=== PATIENT | female | born 1970 | race Hispanic/Latino ===

== ENCOUNTER 2022-12-19 20:24 | Emergency (ER) | payer BC, MEDICAID ==
[~2022-12-19] VITALS: Ht 152.4 cm; Wt 71.7 kg
[~2022-12-19 20:24] MED LIST: BENA10TA77 PO; INSU100V12 SQ; METF-446 PO
[2022-12-19] MEDS ORDERED: LORAZEPAM 2 MG/ML 1 ML VIAL ONE (21:58)
[2022-12-19] MEDS ORDERED: LORAZEPAM 2 MG/ML 1 ML VIAL IVP ONE (22:00)
[2022-12-19 22:01] LABS: BASOPHILS % (AUTO) 0.6 % (0.0-5.0); EOSINOPHILS % (AUTO) 1.7 % (0.0-8.0); HEMATOCRIT 39.4 % (36-48); LYMPHOCYTES % (AUTO) 28.8 % (21.0-51.0); MEAN CORPUSCULAR HEMOGLOBIN 29.2 pg (27.0-33.0); MEAN CORPUSCULAR HGB CONC 34.3 g/dL (32.0-36.0); MEAN CORPUSCULAR VOLUME 85.1 fL (79-99); MONOCYTES % (AUTO) 6.1 % (3.0-13.0); NEUTROPHILS % (AUTO) 62.6 % (40.0-77.0); PLATELET COUNT (AUTO) 251 K/uL (130-400); RED BLOOD CELL COUNT(AUTO) 4.63 MIL/uL (4.00-5.50); RED CELL DISTRIBUTION WIDTH 12.5 % (11.0-15.5); WHITE BLOOD COUNT (AUTO) 8.6 K/uL (4.8-10.8)
[2022-12-19 22:17] LABS: CREATININE 0.8 mg/dL (0.5-1.5); POTASSIUM 3.3 mmol/L (3.5-5.1)
[2022-12-19 22:22] LABS: ALBUMIN 3.9 g/dL (3.5-5.0)
[2022-12-19] MEDS ORDERED: ONDANSETRON 4MG INJ ONE (23:26)
[2022-12-19 23:45] VITALS: BP 146/88
== END 2022-12-20 00:13 | disposition home or self-care (01) ==
LOC: EDH 20:24
DX: F41.9 Anxiety disorder, unspecified (principal); E11.9 Type 2 diabetes mellitus without complications; I10 Essential (primary) hypertension; Z79.4 Long term (current) use of insulin; Z79.84 Long term (current) use of oral hypoglycemic drugs
CPT/HCPCS: 99284; 96374; 96375; 80053; 85025; 85378; 36415; J2405; J2060

== ENCOUNTER → 2023-04-22 | Emergency (ER) | payer BC ==
[~2023-04-22] VITALS: Ht 152.4 cm; Wt 72.6 kg
[2023-04-22 10:23] VITALS: BP 139/85
== END ==
LOC: EDH 10:22
DX: R68.89 Other general symptoms and signs (principal); Z53.21 Procedure and treatment not carried out due to patient leaving prior to being seen by health care provider

== ENCOUNTER 2023-07-29 14:06 | Emergency (ER) | payer BC ==
[~2023-07-29] VITALS: Ht 152.4 cm; Wt 68.0 kg
[~2023-07-29 14:06] MED LIST changes: -BENA10TA77 PO; +CEFD300C3 PO; +CLON0.1T PO; +EMPA25TA PO; +GABA-529 PO; -METF-446 PO; +METO-408 PO; +QUET100T34 PO; +SITA1TBM4 PO; +TELM80TA10 PO
[2023-07-29] MEDS ORDERED: DiphenhydrAMINE HCL 25 MG/10 ML ELIXIR UDCUP PO ONE (15:00)
[2023-07-29] MEDS ORDERED: FAMOTIDINE 20MG TAB PO ONE (15:00)
[2023-07-29] MEDS ORDERED: PREDNISONE 20 MG TABLET PO ONE (15:00)
[2023-07-29] MEDS ORDERED: AMLODIPINE 5 MG TAB PO ONE (16:00)
[2023-07-29] MEDS ORDERED: HYD25 PO (17:00)
[2023-07-29] MEDS ORDERED: CLOT15CR5 TP (17:00)
[2023-07-29] MEDS ORDERED: PRED20TA3 PO (17:00)
[2023-07-29 17:04] VITALS: BP 146/81; PULSE 72; RESP 18; O2SAT 100
== END 2023-07-29 17:06 | disposition home or self-care (01) ==
LOC: EDH 14:06
DX: L20.9 Atopic dermatitis, unspecified (principal); F41.9 Anxiety disorder, unspecified; I10 Essential (primary) hypertension; E11.9 Type 2 diabetes mellitus without complications; Z79.899 Other long term (current) drug therapy; Z98.890 Other specified postprocedural states
CPT/HCPCS: 87880

== ENCOUNTER 2024-08-31 03:41 | Emergency (ER) | payer BC ==
[~2024-08-31] VITALS: Ht 152.4 cm; Wt 63.5 kg
[~2024-08-31 03:41] MED LIST changes: +CLOT15CR5 TP; +HYD25 PO; +PRED20TA3 PO
[2024-08-31 04:18] LABS: APPEARANCE,URINE CLEAR (CLEAR); BILIRUBIN,URINE NEGATIVE (NEGATIVE); COLOR,URINE COLORLESS (YELLOW); GLUCOSE, URINE (UA) NEGATIVE (NEGATIVE); KETONES,URINE NEGATIVE (NEGATIVE); LEUKOCYTE ESTERASE ,URINE NEGATIVE Leu/uL (NEGATIVE); NITRATE,URINE NEGATIVE (NEGATIVE); OCCULT BLOOD,URINE NEGATIVE (NEGATIVE); PH,URINE 6.5 (5.0-8.0); PROTEIN,URINE NEGATIVE (NEGATIVE); UROBILINOGEN,URINE 0.2 mg/dL (0.2-1.0)
[2024-08-31 04:20] LABS: ADD UA MICROSCOPIC NO
[2024-08-31] MEDS: hydrALAZine 20MG/ML VIAL IV ONE (04:34)
[2024-08-31] MEDS: NITROGLYCERIN 1GM OINT 1 INCH/1GM TD ONE (04:35)
[2024-08-31 04:36] LABS: BASOPHILS # (AUTO) 0.05 K/uL (0.00-0.20); BASOPHILS % (AUTO) 0.9 % (0.0-5.0); EOSINOPHILS # (AUTO) 0.27 K/uL (0.00-0.70); EOSINOPHILS % (AUTO) 4.8 % (0.0-8.0); HEMATOCRIT 38.2 % (36-48); IMMATURE GRANULOCYTE ABSOLUTE 0.01 K/uL (0-1); LYMPHOCYTES # (AUTO) 1.9 K/uL (1.0-4.8); LYMPHOCYTES % (AUTO) 33.7 % (21.0-51.0); MEAN CORPUSCULAR VOLUME 85.1 fL (79-99); MONOCYTES # (AUTO) 0.3 K/uL (0.1-1.0); MONOCYTES % (AUTO) 5.9 % (3.0-13.0); NEUTROPHILS # (AUTO) 3.1 K/uL (1.8-7.7); NEUTROPHILS % (AUTO) 54.5 % (40.0-77.0); PLATELET COUNT (AUTO) 283 K/uL (130-400); RED BLOOD CELL COUNT(AUTO) 4.49 MIL/uL (4.00-5.50); RED CELL DISTRIBUTION WIDTH 12.3 % (11.0-15.5); WHITE BLOOD COUNT (AUTO) 5.6 K/uL (4.8-10.8)
[2024-08-31 04:44] LABS: CREATININE 0.7 mg/dL (0.5-1.0)
[2024-08-31 05:02] LABS: B-TYPE NATRIURETIC PEPTIDE 39 pg/mL (0-100)
--- NOTE | 2024-08-31 06:17 | ERN ---
General Chief Complaint: Dizzy/Light Headed Stated Complaint: DIZZINESS Time Seen by MD: 03:59 History of Present Illness Initial Comments Mrs Baldwin is a 54 year old female with a history of type 2 diabetes, essential hypertension, depression, neuropathic pain who presents today with a chief complaint of dizziness. Patient reports that she has been having increased blood pressure and dizziness. Patient reports that her blood pressure has been uncontrolled and says he come in for further evaluation and care Allergies: Coded Allergies: No Known Drug Allergies (Unverified Allergy, Unknown, 01/27/17) Home Meds Active Scripts Hydroxyzine HCl (Atarax) 25 Mg Tab, 25 MG PO TIDMEALS PRN for ITCHING, #30 TAB Prov:TYLOR VELAZCO [employer] 07/29/23 Prednisone (Prednisone) 20 Mg Tablet, 2 TAB PO DAILY for 5 Days, #10 TAB 0 Refills Prov:TYLOR VELAZCO [employer] 07/29/23 Clotrimazole/Betamethasone Dip (Clotrimazole-Betamethasone Crm) 1 %-0.05 % Cream ..g., 0.5 GM TP BID, #15 GM Apply to the affected area of the skin twice a day x7 days. Prov:TYLOR VELAZCO [employer] 07/29/23 Cefdinir (Cefdinir) 300 Mg Capsule, 300 MG PO BID, #14 CAP 0 Refills Prov:JOCE [facility]QVI [facility] [place] 05/02/23 Reported Medications Insulin Detemir (Levemir) 100 Unit/1 Ml Vial, 22 UNIT SQ AD, VIAL 04/29/23 Sitagliptin Phos/Metformin HCl (Janumet Xr 50-1,000 mg Tablet) 1 Each Tbmp.24hr, 1 EACH PO BID, TAB.SR 04/29/23 Telmisartan (Telmisartan) 80 Mg Tablet, 80 MG PO DAILY, TAB 04/29/23 Gabapentin (Gabapentin) 100 Mg Capsule, 100 MG PO DAILY, CAP 04/29/23 Quetiapine Fumarate (Quetiapine Fumarate) 100 Mg Tablet, 100 MG PO HS, TAB 04/29/23 Clonidine HCl (Clonidine HCl) 0.1 Mg Tablet, 0.1 MG PO AD, TAB 04/29/23 Empagliflozin (Jardiance) 25 Mg Tablet, 25 MG PO DAILY, TAB 04/29/23 Gabapentin (Gabapentin) 100 Mg Capsule, 100 MG PO HS, CAP 04/29/23 Metoprolol Succinate (Metoprolol Succinate) 25 Mg Tab.er.24h, 25 MG PO DAILY, TAB 04/29/23 Past Medical History Past Medical History: Diabetes-Type II, Hypertension Past Surgical History: Family History Family History: Negative Social History Social History: Negative Female( History) History: Not Applicable ROS Dictation Constitutional: Negative for fever,chills, and weight loss Eyes: Negative for injury, pain,redness, and discharge ENT: Negative for injury,pain or swelling Cardiovascular: Negative for chest pain, palpitations, and edema Respiratory: Negative for shortness of breath, cough, and wheezing, Abdomen/GI: Negative for abdominal pain, nausea, vomiting, diarrhea, and constipation Back: Negative for injury and pain : Negative for injury, bleeding and discharge MS/Extremity: Negative for injury Skin: Negative for rash, and discoloration Neuro: Positive for dizziness Psych: Negative for suicide ideation, homicidal ideation, and hallucinations Physical Exam Physical Exam Dictation General: awake, alert, NAD Head/Face: Normocephalic, atraumatic Eyes: PERRL, EOMI, ENT: oral cavity clear, nasal turbinate swelling bilateral, tympanic membrane congestion Neck: Trachea midline, supple, Cardiovascular: RRR, normal S1/S2, No MRGs, no JVD Respiratory: CTAB, no respiratory distress Abdomen: Soft, non-tender, non-distended, normal bowel sounds, no guarding or rebound. Skin: Warm, dry, normal turgor, no rash MS/Extremity: Pulses equal, no cyanosis, neurovascular intact, FROM Neuro: COAx4, GCS 15, strength 5/5, CN 2-12 intact, Results Laboratory and Microbiology Lab and Micro Result Laboratory Tests Test 08/31/24 04:08 08/31/24 04:28 08/31/24 04:53 Urine Color COLORLESS (YELLOW) Urine Appearance CLEAR (CLEAR) Urine pH 6.5 (5.0-8.0) Urine Specific [place] 1.004 (1.001-1.031) Urine Protein NEGATIVE mg/dL (NEGATIVE) Urine Glucose (UA) NEGATIVE mg/dL (NEGATIVE) Urine Ketones NEGATIVE mg/dL (NEGATIVE) Urine Occult Blood NEGATIVE (NEGATIVE) Urine Nitrate NEGATIVE (NEGATIVE) Urine Bilirubin NEGATIVE mg/dL (NEGATIVE) Urine Urobilinogen 0.2 mg/dL (0.2-1.0) Urine Leukocyte Esterase NEGATIVE Fredy/uL White Blood Count 5.6 K/uL (4.8-10.8) Red Blood Count 4.49 MIL/uL (4.00-5.50) Hemoglobin 13.0 g/dL (12.0-16.0) Hematocrit 38.2 % (36-48) Mean Corpuscular Volume 85.1 fL (79-99) Mean Corpuscular Hemoglobin 29.0 pg (27.0-33.0) Mean Corpuscular Hemoglobin Concent 34.0 g/dL (32.0-36.0) Red Cell Distribution Width 12.3 % (11.0-15.5) Platelet Count 283 K/uL (130-400) Mean Platelet Volume 10.8 fL (7.5-10.5) H Immature Granulocyte % (Auto) 0.2 % (0-1) Neutrophils (%) (Auto) 54.5 % (40.0-77.0) Lymphocytes (%) (Auto) 33.7 % (21.0-51.0) Monocytes (%) (Auto) 5.9 % (3.0-13.0) Eosinophils (%) (Auto) 4.8 % (0.0-8.0) Basophils (%) (Auto) 0.9 % (0.0-5.0) Neutrophils # (Auto) 3.1 K/uL (1.8-7.7) Lymphocytes # (Auto) 1.9 K/uL (1.0-4.8) Monocytes # (Auto) 0.3 K/uL (0.1-1.0) Eosinophils # (Auto) 0.27 K/uL (0.00-0.70) Basophils # (Auto) 0.05 K/uL (0.00-0.20) Absolute Immature Granulocyte (auto 0.01 K/uL (0-1) Nucleated Red Blood Cells 0.0 % (0.0-0.19) Sodium Level 137 mmol/L (136-145) Potassium Level 4.0 mmol/L (3.5-5.1) Chloride Level 100 mmol/L (101-111) L Carbon Dioxide Level 28 mmol/L (21-32) Blood Urea Nitrogen 17 mg/dL (7-18) Creatinine 0.7 mg/dL (0.5-1.0) Glomerular Filtration Rate Calc 103 mL/min (>90) Random Glucose 173 mg/dL (70-105) H Total Calcium 9.1 mg/dL (8.5-10.1) B-Type Natriuretic Peptide 39 pg/mL (0-100) Troponin I < 0.05 ng/mL (0.00-0.05) Labs Reviewed?: Yes EKG/XRAY/US/CT/MRI CT Scan Comment [facility] [address] [place] [address] IMAGING REPORT Signed PATIENT: KENTRELL BALDWIN MR#: [id number] : 1970 SEX: F AGE: 54 LOCATION: [facility] ORDER 9 STATUS: REG REPORT#: [id number] SERVICE 7 REASON: DIZZINESS ORDERING PHYSICIAN: ZACH SANCHES MD PROCEDURE: HEAD WO - CT HEAD/BRAIN W/O CONTRAST CT HEAD/BRAIN W/O CONTRAST HISTORY: Dizziness COMPARISON: None TECHNIQUE: Multiple sequential axial images of the head were obtained from the base of the skull through vertex. Patient was not given contrast through intravenous route. FINDINGS: The ventricles and extraventricular CSF spaces are nondilated for patient's age. There is no midline shift, mass effect or herniation. No acute intracranial bleed is seen. Visualized portion of the paranasal sinuses are grossly within normal limits. IMPRESSION: 1. No acute intracranial bleed is seen. CT was performed with one or more following dose reduction techniques: automated exposure control, adjustment of the mA and kv according to patient's size, or use of a iterative reconstruction technique. DICTATED BY: SHARON ZABALA MD DATE: 08/31/24817 ELECTRONICALLY SIGNED BY: SHARON ZABALA MD DATE: 08/31/24820 [facility] MDM: Differential diagnosis: Vertigo, dizziness, sinusitis, 54-year-old female coming in to be evaluated for dizziness. Laboratory workup negative for acute findings. CT of the head negative for acute findings. Patient will be discharged with a diagnosis of sinusitis symptom physical exam bilateral tympanic membrane congestion as well as nasal turbinate swelling. ED Course Orders Procedure Category Date Status Time Urinalysis Profile LAB 08/31/24 Complete 04:12 Cbc With Differential LAB 08/31/24 Complete 04:17 B-Type Natriuretic LAB 08/31/24 Complete Peptide 04:17 Chest 1vw RAD 08/31/24 Resulted 04:17 Nitroglycerin 1gm PHA 08/31/24 Complete Oint (Nitroglycerin 1g 04:30 Troponin Poc Order LAB 08/31/24 Complete Only 04:17 Basic Metabolic Panel LAB 08/31/24 Complete 04:17 Hydralazine 20mg Inj PHA 08/31/24 Complete (Apresoline 20mg In 04:30 Ct Head/Brain W/O CT 08/31/24 Resulted Contrast 05:58 Ondansetron 4mg Inj PHA 08/31/24 Complete (Zofran 4mg Inj) 06:30 Meclizine Hcl 25 Mg PHA 08/31/24 Complete (Antivert 25 Mg) 08:00 Dexamethasone 4mg/Ml PHA 08/31/24 Complete 1ml Vial (Dexametha 08:00 0.9%Nacl 1000ml (Ns PHA 08/31/24 Complete 1000ml) 08:00 Current Medications Medications (Trade) Dose Ordered Sig/Carlota Route PRN Reason Start Time Stop Time Status Last Admin Dose Admin Dexamethasone Sodium Phosphate (dexaMETHasone 4MG/ML 1ML VIAL) 4 mg ONCE ONCE IV 08/31/24 08:00 08/31/24 08:01 DC 08/31/24 08:12 Hydralazine HCl (APRESOLine 20MG INJ) 20 mg ONCE ONCE IV 08/31/24 04:30 08/31/24 04:31 DC 08/31/24 04:34 Meclizine HCl (ANTIvert 25 mg) 25 mg ONCE ONCE PO 08/31/24 08:00 08/31/24 08:01 DC 08/31/24 08:13 Nitroglycerin (Nitroglycerin 1gm Oint) 1 inch ONCE ONCE TD 08/31/24 04:30 08/31/24 04:31 DC 08/31/24 04:35 Ondansetron HCl (zoFRAN 4MG INJ) 4 mg ONCE ONCE IVP 08/31/24 06:30 08/31/24 06:31 DC 08/31/24 06:18 Sodium Chloride 1,000 ml @ 0 mls/hr ONCE ONCE IV 08/31/24 08:00 08/31/24 08:01 DC 08/31/24 08:12 Vital Signs Date Time Temp Pulse Resp B/P (MAP) Pulse Ox O2 Delivery O2 Flow Rate FiO2 08/31/24 07:42 98.1 87 16 139/72 95 Room Air* 0 08/31/24 05:38 87 16 156/82 97 Room Air* 0 08/31/24 04:16 98.1 79 16 175/109 99 Room Air* 0 08/31/24 03:45 98.1 80 16 178/97 99 Room Air 0 DX & DISP Disposition: Discharge Departure Impression: Primary Impression: Acute frontal sinusitis Condition: Stable Scripts Fluticasone Propionate (Flonase Nasal [place]) 50 Mcg/Actuation [place] 2 SPRAY NS DAILY, #16 GM 0 Refills Prov: CARLOZ ENCISO MD 08/31/24 Amoxicillin/Potassium Clav (Amox Tr-K Clv 875-125 mg Tab) 875 Mg-125 Mg Tablet 1 TAB PO BID for 10 Days, #20 TAB 0 Refills Prov: CARLOZ ENCISO MD 08/31/24 Additional Instructions: FOLLOW-UP WITH PRIMARY CARE PROVIDER IN 1 TO 2 DAYS. TAKE MEDICATIONS DIRECTED HERE IN THE EMERGENCY ROOM. OKAY TO CONTINUE HOME MEDICATIONS UNLESS OTHERWISE DISCUSSED DURING YOUR VISIT IN THE EMERGENCY ROOM TODAY. RETURN TO YOUR NEAREST EMERGENCY ROOM IF SYMPTOMS WORSEN OR IF THERE IS NO IMPROVEMENT. CALL 911 IF YOU NEED IMMEDIATE ASSISTANCE. TAKE TYLENOL [id number] NEEDED AND IF NO CONTRAINDICATIONS ARE PRESENT. INCREASE ORAL HYDRATION. A WOUND CULTURE OR URINE CULTURE WAS ORDERED HERE IN THE EMERGENCY ROOM DEPARTMENT PLEASE FOLLOW-UP WITH PRIMARY CARE PROVIDER AND ADVISE THEM TO GET REPEAT PORTS FROM OUR FACILITY. IF YOU HAD ANY RICKY WRAP/SPLINTS THAT WERE APPLIED HERE, PLEASE DO NOT REMOVE THEM UNTIL YOU SEE YOUR PRIMARY CARE OR SPECIALTY. Referrals: Referrals: SELF,REFERRAL (PCP) RHINA METCALF III, MD, LUIS A MD Time of Disposition: 08:38 ZACH SANCHES MD Aug 31, 2024 06:17 CARLOZ ENCISO MD Aug 31, 2024 08:34
[2024-08-31] MEDS: ondanSETRON 4MG INJ IVP ONE (06:18)
[2024-08-31] MEDS: dexaMETHasone SOD PHOSPHATE 4 MG/ML 1ML VIAL IV ONE (08:12)
[2024-08-31] MEDS: 0.9%NACL 1000ML 1,000 ML IV ONE (08:12)
[2024-08-31] MEDS: mecliZINE HCL 25 MG TABLET PO ONE (08:13)
--- NOTE | 2024-08-31 08:21 | HMCIMG ---
CT HEAD/BRAIN W/O CONTRAST HISTORY: Dizziness COMPARISON: None TECHNIQUE: Multiple sequential axial images of the head were obtained from the base of the skull through vertex. Patient was not given contrast through intravenous route. FINDINGS: The ventricles and extraventricular CSF spaces are nondilated for patient's age. There is no midline shift, mass effect or herniation. No acute intracranial bleed is seen. Visualized portion of the paranasal sinuses are grossly within normal limits. IMPRESSION: 1. No acute intracranial bleed is seen. CT was performed with one or more following dose reduction techniques: automated exposure control, adjustment of the mA and kv according to patient's size, or use of a iterative reconstruction technique.
--- NOTE | 2024-08-31 08:31 | HMCIMG ---
CHEST 1VW HISTORY: Shortness of breath COMPARISON: None FINDINGS: A frontal projection of the chest was obtained. No acute pulmonary infiltrates is seen. The heart is normal in size. Prominent interstitial markings are seen. Degenerative changes are seen. No evidence of aortic calcification is seen. IMPRESSION: 1. No acute pulmonary infiltrate is seen.
[2024-08-31] MEDS ORDERED: AMOX1TAB16 PO (08:39)
[2024-08-31] MEDS ORDERED: FLUT16H NS (08:39)
[2024-08-31] MEDS: ketOROlac 15MG/ML VIAL (15MG/ML) IM ONE (09:09)
--- NOTE | 2024-08-31 09:09 | NUR ---
FLUIDS NOT COMPLETED
[2024-08-31 09:50] VITALS: BP 146/80; PULSE 98; RESP 16; TEMP 98.1; O2SAT 99
== END 2024-08-31 10:20 | disposition home or self-care (01) ==
LOC: EDH 03:41
DX: J01.10 Acute frontal sinusitis, unspecified (principal); I10 Essential (primary) hypertension; E11.9 Type 2 diabetes mellitus without complications; F32.A Depression, unspecified; Z79.52 Long term (current) use of systemic steroids; Z79.84 Long term (current) use of oral hypoglycemic drugs; Z79.899 Other long term (current) drug therapy; Z98.890 Other specified postprocedural states
CPT/HCPCS: 99284; 96374; 70450; 96375; 71045; 96361; 84484; 80048; 83880; 85025; 81003; 36415; 96372; J1100; J7030; J0360; J2405; J1885

== ENCOUNTER 2025-02-13 00:53 | Emergency (ER) | payer BC ==
[~2025-02-13] VITALS: Ht 152.4 cm; Wt 64.4 kg
[~2025-02-13 00:53] MED LIST changes: +AMOX1TAB16 PO; +FLUT16H NS
--- NOTE | 2025-02-13 01:19 | ERN ---
General Chief Complaint: Hypertension Stated Complaint: C/O HIGH B/P WITH DIZZINESS Time Seen by MD: 00:56 Time Seen by Midlevel: 00:56 Source: patient History of Present Illness Initial Comments The patient is a 55-year-old female with a past medical history of type 2 diabetes, hypertension, insomnia, and anxiety presenting to the emergency department for evaluation of an elevated blood pressure reading at home. Patient states that at approximately 10:00 p.m. today she did not feel that so she decided to check her blood pressure and it was 190 systolic. She proceeded to take her telmisartan 40 mg however 1 hour later she developed a headache, chest pressure, and palpitations. Her blood pressure at that time was 2:20 a.m. systolic so she decided to report to the ER for further evaluation. At this time she had already taken 40 mg of telmisartan. On arrival she does report some mild chest pressure with palpitations but does report feeling better than when she was at home. Allergies: Coded Allergies: No Known Drug Allergies (Unverified Allergy, Unknown, 01/27/17) Home Meds Active Scripts Fluticasone Propionate (Flonase Nasal [place]) 50 Mcg/Actuation [place], 2 SPRAY NS DAILY, #16 GM 0 Refills Prov:CARLOZ ENCISO MD 08/31/24 Amoxicillin/Potassium Clav (Amox Tr-K Clv 875-125 mg Tab) 875 Mg-125 Mg Tablet, 1 TAB PO BID for 10 Days, #20 TAB 0 Refills Prov:CARLOZ ENCISO MD 08/31/24 Hydroxyzine HCl (Atarax) 25 Mg Tab, 25 MG PO TIDMEALS PRN for ITCHING, #30 TAB Prov:TYLOR VELAZCO [employer] 07/29/23 Prednisone (Prednisone) 20 Mg Tablet, 2 TAB PO DAILY for 5 Days, #10 TAB 0 Refills Prov:TYLOR VELAZCOP 07/29/23 Clotrimazole/Betamethasone Dip (Clotrimazole-Betamethasone Crm) 1 %-0.05 % Cream..g., 0.5 GM TP BID, #15 GM Apply to the affected area of the skin twice a day x7 days. Prov:TYLOR VELAZCO [employer] 10/20/23 Cefdinir (Cefdinir) 300 Mg Capsule, 300 MG PO BID, #14 CAP 0 Refills Prov:JOCE NAQVI [facility] 05/02/23 Reported Medications Insulin Detemir (Levemir) 100 Unit/1 Ml Vial, 22 UNIT SQ AD, VIAL 04/29/23 Sitagliptin Phos/Metformin HCl (Janumet Xr 50-1,000 mg Tablet) 1 Each Tbmp.24hr, 1 EACH PO BID, TAB.SR 04/29/23 Telmisartan (Telmisartan) 80 Mg Tablet, 80 MG PO DAILY, TAB 04/29/23 Gabapentin (Gabapentin) 100 Mg Capsule, 100 MG PO DAILY, CAP 04/29/23 Quetiapine Fumarate (Quetiapine Fumarate) 100 Mg Tablet, 100 MG PO HS, TAB 04/29/23 Clonidine HCl (Clonidine HCl) 0.1 Mg Tablet, 0.1 MG PO AD, TAB 04/29/23 Empagliflozin (Jardiance) 25 Mg Tablet, 25 MG PO DAILY, TAB 04/29/23 Gabapentin (Gabapentin) 100 Mg Capsule, 100 MG PO HS, CAP 04/29/23 Metoprolol Succinate (Metoprolol Succinate) 25 Mg Tab.er.24h, 25 MG PO DAILY, TAB 04/29/23 Past Medical History Past Medical History: Anxiety, Diabetes-Type II, Hypertension, Other Medical History Other: INSOMNIA Past Surgical History: Family History Family History: Negative Social History Social History: Negative Female( History) History: Not Applicable ROS Dictation CONSTITUTIONAL: Negative except for HPI HEAD/FACE: Negative except for HPI EENT: Negative except for HPI RESPIRATORY: Negative except for HPI GASTROINTESTINAL/ABDOMINAL: Negative except for HPI GENITOURINARY: Negative except for HPI MUSCULOSKELETAL: Negative except for HPI INTEGUMENTARY: Negative except for HPI NEUROLOGICAL/PSYCH: Negative except for HPI HEMATOLOGIC/LYMPHATIC: Negative except for HPI All Systems Negative, Except as noted above. 13 point review of systems assessed and all negative except for above. Physical Exam Physical Exam Dictation Vital Signs reviewed General Appearance: Alert, oriented x 3, no acute distress, well developed, nourished. Head and Face: non-traumatic. Eyes: PERRL, pink conjunctivas, eyelid no trauma, anterior chamber with arcus senilis. Ears: Pinnas intact and no signs of trauma or erythema ear canals clear and no discharge TM no erythema Nose: No discharge, no bleeding. Oropharynx: Mouth normal, tongue pink, pharynx clear,no erythema, tonsils no exudates, no abscesses noted, mucous membrane moist Neck: Supple, non-tender, no thyromegaly, no masses, no JVD, no bruits Breast:Deferred Chest:No tenderness, no crepitus, no paradoxical movement, no retractions Lungs:Clear, well-ventilated, symmetric, no rales, no wheezing, no rhonchi, no stridor, good breath sounds bilaterally Heart: Regular rate, regular rhythm, no murmur, no gallops Vascular: no peripheral edema, Abdomen: Soft, positive bowel sounds, nondistended, no guarding, nontender, no rebound, no masses no hepatomegaly, no splenomegaly, no Tellez's sign, no hernias. Rectal: Deferred Genital: Deferred Neurological: Normal speech, motor function intact, sensory function intact Musculoskeletal: Neck nontender, full range of motion, back nontender, full range of motion, Extremities: nontender, full range of motion Skin: Color pink, dry, no turgor, no rash, no lacerations, no abrasions, no contusions. Lymphatic: Deferred Results Laboratory and Microbiology Lab and Micro Result Laboratory Tests Test 02/13/25 01:01 02/13/25 01:33 02/13/25 03:07 Urine Color COLORLESS (YELLOW) Urine Appearance CLEAR (CLEAR) Urine pH 7.0 (5.0-8.0) Urine Specific [place] 1.007 (1.001-1.031) Urine Protein NEGATIVE mg/dL (NEGATIVE) Urine Glucose (UA) >=1000 mg/dL (NEGATIVE) H Urine Ketones NEGATIVE mg/dL (NEGATIVE) Urine Occult Blood NEGATIVE (NEGATIVE) Urine Nitrate NEGATIVE (NEGATIVE) Urine Bilirubin NEGATIVE mg/dL (NEGATIVE) Urine Urobilinogen 0.2 mg/dL (0.2-1.0) Urine Leukocyte Esterase 25 Fredy/uL (NEGATIVE) H Urine RBC 0-1 /HPF (0-1) Urine WBC 2-5 /HPF (0-1) H Urine Squamous Epithelial Cells FEW /HPF (0-2) Urine Bacteria None /HPF (None Seen) Urine Opiates Screen NEGATIVE (NEGATIVE) Urine Barbiturates Screen NEGATIVE (NEGATIVE) Urine Phencyclidine Screen NEGATIVE (NEGATIVE) Urine Amphetamines Screen NEGATIVE (NEGATIVE) Urine Benzodiazepines Screen NEGATIVE (NEGATIVE) Urine Cocaine Screen NEGATIVE (NEGATIVE) Urine Marijuana (THC) Screen NEGATIVE (NEGATIVE) White Blood Count 6.5 K/uL (4.8-10.8) Red Blood Count 4.42 MIL/uL (4.00-5.50) Hemoglobin 12.9 g/dL (12.0-16.0) Hematocrit 37.6 % (36-48) Mean Corpuscular Volume 85.1 fL (79-99) Mean Corpuscular Hemoglobin 29.2 pg (27.0-33.0) Mean Corpuscular Hemoglobin Concent 34.3 g/dL (32.0-36.0) Red Cell Distribution Width 12.6 % (11.0-15.5) Platelet Count 285 K/uL (130-400) Mean Platelet Volume 11.2 fL (7.5-10.5) H Immature Granulocyte % (Auto) 0.3 % (0-1) Neutrophils (%) (Auto) 58.5 % (40.0-77.0) Lymphocytes (%) (Auto) 31.2 % (21.0-51.0) Monocytes (%) (Auto) 6.6 % (3.0-13.0) Eosinophils (%) (Auto) 2.9 % (0.0-8.0) Basophils (%) (Auto) 0.5 % (0.0-5.0) Neutrophils # (Auto) 3.8 K/uL (1.8-7.7) Lymphocytes # (Auto) 2.0 K/uL (1.0-4.8) Monocytes # (Auto) 0.4 K/uL (0.1-1.0) Eosinophils # (Auto) 0.19 K/uL (0.00-0.70) Basophils # (Auto) 0.03 K/uL (0.00-0.20) Absolute Immature Granulocyte (auto 0.02 K/uL (0-1) Nucleated Red Blood Cells 0.0 % (0.0-0.19) Sodium Level 136 mmol/L (136-145) Potassium Level 3.8 mmol/L (3.5-5.1) Chloride Level 100 mmol/L (101-111) L Carbon Dioxide Level 30 mmol/L (21-32) Blood Urea Nitrogen 16 mg/dL (7-18) Creatinine 0.8 mg/dL (0.5-1.0) Glomerular Filtration Rate Calc 87 mL/min (>90) Random Glucose 380 mg/dL (70-105) H Total Calcium 9.2 mg/dL (8.5-10.1) Magnesium Level 1.60 mg/dL (1.80-2.40) L Total Creatine Kinase 50 U/L (21-232) Troponin I High Sensitivity 5 ng/L (4-50) B-Type Natriuretic Peptide 18 pg/mL (0-100) Whole Blood Glucose 347 MG/DL (70-110) H MDM MDM: 55-year-old female with a past medical history of type 2 diabetes, hypertension, anxiety, and insomnia presenting to ER for an elevated blood pressure reading. On arrival her blood pressure is 180 systolic however when she was placed in room 16 her blood pressure had already improved to 170 systolic. She did report some chest pressure so I went ahead and ordered cardiac enzymes along with a CT scan of the head because she reported a persistent headache. Differential diagnosis: There are no social concerns with this patient. Prescription drug management Prescriptions will include: Medical management and examination interpretation discussions were had by me with other qualified healthcare professionals as indicated for the patient's care. Patient's CT head is negative. Patient's cardiac enzymes are negative. Patient's CBC is negative. Patient's BNP is negative. Patient's blood pressure was finally brought under control with hydralazine and her sugars were treated with regular insulin. Patient is stable for discharge ED Course Orders Procedure Category Date Status Time 12 Lead Ekg Tracing- EKG 02/13/25 Logged Technical 00:59 Cbc With Differential LAB 02/13/25 Complete 00:59 B-Type Natriuretic LAB 02/13/25 Complete Peptide 00:59 Basic Metabolic Panel LAB 02/13/25 Complete 00:59 Creatine Kinase, Total LAB 02/13/25 Complete 00:59 Drug Screen Urine LAB 02/13/25 Complete 00:59 Urinalysis Profile LAB 02/13/25 Complete 00:59 Troponin I High LAB 02/13/25 Complete Sensitivity 00:59 Magnesium LAB 02/13/25 Complete 00:59 Chest 1vw RAD 02/13/25 Taken 00:59 Ct Head/Brain W/O CT 02/13/25 Taken Contrast 01:18 Acetaminophen 500mg PHA 02/13/25 Complete Tab (Tylenol 500mg T 02:30 Hydralazine 20mg Inj PHA 02/13/25 Complete (Apresoline 20mg In 02:30 Bedside Glucose CPOE 02/13/25 Transmitted Fingerstick 02:57 Insulin Regular, PHA 02/13/25 Complete Human 3ml (Humulin R 03:30 Current Medications Medications (Trade) Dose Ordered Sig/Carlota Route PRN Reason Start Time Stop Time Status Last Admin Dose Admin Acetaminophen (TYLenol 500MG TAB) 1,000 mg ONCE ONCE PO 02/13/25 02:30 02/13/25 02:31 DC 02/13/25 02:21 Hydralazine HCl (APRESOLine 20MG INJ) 20 mg ONCE ONCE IV 02/13/25 02:30 02/13/25 02:47 DC Insulin Human Regular (humuLIN R 100 UNIT/ML 3ML) 20 unit ONCE ONCE SQ 02/13/25 03:30 02/13/25 03:31 DC Vital Signs Date Time Temp Pulse Resp B/P (MAP) Pulse Ox O2 Delivery O2 Flow Rate FiO2 02/13/25 02:37 72 20 170/91 98 Room Air* 0 21 02/13/25 01:30 98.8 76 20 177/100 97 Room Air* 0 21 02/13/25 00:55 98.8 85 20 188/113 99 Room Air DX & DISP Disposition: Discharge Departure Impression: Primary Impression: Hypertension Condition: Stable Referrals: SELF,REFERRAL (PCP) DUKE ARORA February 13, 2025 01:19 ANA GOFF MD February 13, 2025 03:34
[2025-02-13 01:21] LABS: AMPHET/METH SCREEN,URINE NEGATIVE (NEGATIVE); BARBITURATE SCREEN, URINE NEGATIVE (NEGATIVE); BENZODIAZEPINES SCREEN,URINE NEGATIVE (NEGATIVE); CANNABINOID SCREEN,URINE NEGATIVE (NEGATIVE); COCAINE SCREEN,URINE NEGATIVE (NEGATIVE); OPIATE SCREEN,URINE NEGATIVE (NEGATIVE); PHENCYCLIDINE SCREEN,URINE NEGATIVE (NEGATIVE)
[2025-02-13 01:22] LABS: ADD UA MICROSCOPIC YES; APPEARANCE,URINE CLEAR (CLEAR); BILIRUBIN,URINE NEGATIVE (NEGATIVE); COLOR,URINE COLORLESS (YELLOW); GLUCOSE, URINE (UA) >=1000 mg/dL (NEGATIVE); KETONES,URINE NEGATIVE (NEGATIVE); LEUKOCYTE ESTERASE ,URINE 25 Leu/uL (NEGATIVE); NITRATE,URINE NEGATIVE (NEGATIVE); OCCULT BLOOD,URINE NEGATIVE (NEGATIVE); PROTEIN,URINE NEGATIVE (NEGATIVE); UROBILINOGEN,URINE 0.2 mg/dL (0.2-1.0)
[2025-02-13 01:23] LABS: MUCUS,URINE RARE LPF (None Seen); RBC,URINE 0-1 /HPF (0-1); SQUAMOUS EPITHELIAL CELL,UR FEW /HPF (0-2)
[2025-02-13 02:06] LABS: BASOPHILS # (AUTO) 0.03 K/uL (0.00-0.20); BASOPHILS % (AUTO) 0.5 % (0.0-5.0); EOSINOPHILS # (AUTO) 0.19 K/uL (0.00-0.70); EOSINOPHILS % (AUTO) 2.9 % (0.0-8.0); HEMATOCRIT 37.6 % (36-48); IMMATURE GRANULOCYTE ABSOLUTE 0.02 K/uL (0-1); LYMPHOCYTES % (AUTO) 31.2 % (21.0-51.0); MEAN CORPUSCULAR HEMOGLOBIN 29.2 pg (27.0-33.0); MEAN CORPUSCULAR HGB CONC 34.3 g/dL (32.0-36.0); MEAN CORPUSCULAR VOLUME 85.1 fL (79-99); MONOCYTES # (AUTO) 0.4 K/uL (0.1-1.0); MONOCYTES % (AUTO) 6.6 % (3.0-13.0); NEUTROPHILS # (AUTO) 3.8 K/uL (1.8-7.7); NEUTROPHILS % (AUTO) 58.5 % (40.0-77.0); PLATELET COUNT (AUTO) 285 K/uL (130-400); RED BLOOD CELL COUNT(AUTO) 4.42 MIL/uL (4.00-5.50); RED CELL DISTRIBUTION WIDTH 12.6 % (11.0-15.5); WHITE BLOOD COUNT (AUTO) 6.5 K/uL (4.8-10.8)
[2025-02-13 02:17] LABS: CREATININE 0.8 mg/dL (0.5-1.0); POTASSIUM 3.8 mmol/L (3.5-5.1)
[2025-02-13] MEDS: acetaMINOPHEN 500 MG TABLET PO ONE (02:21)
[2025-02-13 02:22] LABS: MAGNESIUM 1.6 mg/dL (1.80-2.40)
[2025-02-13 02:26] LABS: B-TYPE NATRIURETIC PEPTIDE 18 pg/mL (0-100)
[2025-02-13] MEDS: hydrALAZine 20MG/ML VIAL IV ONE (03:16)
[2025-02-13] MEDS: INSULIN humuLIN R 100 UNIT/ML 3ML SQ ONE (03:59)
[2025-02-13 05:30] VITALS: BP 142/80; PULSE 72; RESP 18; TEMP 98.2; O2SAT 99
--- NOTE | 2025-02-13 08:32 | HMCIMG ---
Exam Type: CT HEAD/BRAIN W/O CONTRAST Clinical Information: hypertensive urgency Comparison: None CT Dose Index (CTDI): 57.33 mGy Dose Length Product (DLP): 956.79 total mGy-cm Findings: The examination is unremarkable. Cruz-white matter junction is preserved. No intra or extra axial lesions or fluid collections are seen. Specifically, cruz and white matter are normal in signal characteristics with normal caliber of ventricles and periventricular cisterns with no evidence of intra or or extra-axial hemorrhage, lacunar infarct, or major territorial infarct, mass, or other abnormality. There are no infarcts. There are no hemorrhages. Periventricular white matter locations are preserved. The orbital contents and structures of the posterior fossa are intact. Impression: Normal CT of the head. This study was performed using dose reduction techniques to include automated exposure control and/or adjustment of the mA and/or kV according to patient size.
--- NOTE | 2025-02-13 09:16 | HMCIMG ---
Exam Type: CHEST 1VW Clinical Information: sob Comparison: None Findings: The lungs are clear of infiltrates. The heart is normal in size. The bony and soft tissue structures of the chest are unremarkable. Impression: Clear lungs.
--- NOTE | 2025-02-13 11:06 | EKG ---
[facility] Test Date: 2025-02-13 Test Time: 01:04:46 Pat Name: KENTRELL BALDWIN Department: [facility] Room: Gender: F Rivet [employer] Gas: [id number] : 1970 Requested By: DUKE ARORA Order Number: [id number] Reading MD: Girish Chiang Measurements Intervals Holmen Rate: 96 P: 32 MT: 154 QRS: -34 QRSD: 86 T: 38 QT: 348 QTc: 441 Interpretive Statements Sinus rhythm Old inferior wall [place] Low voltage, extremity leads Probable left ventricular hypertrophy Compared to ECG 01/27/2017 12:31:51 Low QRS voltage now present Electronically Signed On 02-13-2025 21:26:45 CDT by Girish Chiang Please click the below link to view image of tracing.
== END 2025-02-13 05:30 | disposition home or self-care (01) ==
LOC: EDH 00:53
DX: I10 Essential (primary) hypertension (principal); F41.9 Anxiety disorder, unspecified; E11.9 Type 2 diabetes mellitus without complications; Z79.52 Long term (current) use of systemic steroids; Z79.84 Long term (current) use of oral hypoglycemic drugs; Z79.899 Other long term (current) drug therapy
CPT/HCPCS: 99284; 96374; 70450; 71045; 82550; 83735; 84484; 80048; 83880; 80305; 85025; 82948 ×2; 36415; 93005; 96372; 81001; J1815; J0360

== ENCOUNTER 2025-05-19 00:55 | Emergency (ER) | payer BC ==
[~2025-05-19] VITALS: Ht 152.4 cm; Wt 62.1 kg
--- NOTE | 2025-05-19 01:16 | EKG ---
[facility] Test Date: 2025-05-19 Test Time: 01:13:12 Pat Name: KENTRELL BALDWIN Department: [facility] Room: Gender: F [employer] Intern: [id number] : 1970 Requested By: RINA RICHARDSON Order Number: [id number] Reading MD: Preston Coreas Measurements Intervals [place] Rate: 67 P: 38 NH: 158 QRS: -22 QRSD: 91 T: 29 QT: 403 QTc: 427 Interpretive Statements Sinus rhythm Probable left atrial enlargement Low voltage, extremity leads Compared to ECG 02/13/2025 01:04:46 Myocardial infarct finding no longer present Electronically Signed On 05-19-2025 16:04:23 CDT by Preston Coreas Please click the below link to view image of tracing.
--- NOTE | 2025-05-19 01:25 | ERN ---
ED Note History of Present Illness Stated Complaint: CHILLS, VOMITING, LOW HEART RATE OF 60 Chief Complaint: Multiple Complaints Time Seen by MD: 00:57 Time Seen by Midlevel: 00:57 Dictation: The patient is a 55-year-old female with a history of hypertension, diabetes who presents to the emergency department with complaints of chills, nausea nonbloody vomiting, generalized abdominal pain onset 10 30. Patient reports that during episode she checked her blood pressure and reports her heart rate was low in the 60s and will became concerned. Reports she has been checking frequently because they changed her medications two months ago. Patient denies any chest pain or shortness of breath. Denies any diarrhea. Reports last bowel movement yesterday Allergies: Coded Allergies: No Known Drug Allergies (Unverified Allergy, Unknown, 01/27/17) Home Meds Active Scripts Fluticasone Propionate (Flonase Nasal [place]) 50 Mcg/Actuation [place], 2 SPRAY NS DAILY, #16 GM 0 Refills Prov:CARLOZ ENCISO MD 08/31/24 Amoxicillin/Potassium Clav (Amox Tr-K Clv 875-125 mg Tab) 875 Mg-125 Mg Tablet, 1 TAB PO BID for 10 Days, #20 TAB 0 Refills Prov:CARLOZ ENCISO MD 08/31/24 Hydroxyzine HCl (Atarax) 25 Mg Tab, 25 MG PO TIDMEALS PRN for ITCHING, #30 TAB Prov:TYLOR VELAZCO [facility] 07/29/23 Prednisone (Prednisone) 20 Mg Tablet, 2 TAB PO DAILY for 5 Days, #10 TAB 0 Refills Prov:TYLOR VELAZCO [facility] 07/29/23 Clotrimazole/Betamethasone Dip (Clotrimazole-Betamethasone Crm) 1 %-0.05 % Cream..g., 0.5 GM TP BID, #15 GM Apply to the affected area of the skin twice a day x7 days. Prov:TYLOR VELAZCO [facility] 07/29/23 Cefdinir (Cefdinir) 300 Mg Capsule, 300 MG PO BID, #14 CAP 0 Refills Prov:JOCE NAQVI AGPCNP 05/02/23 Reported Medications Insulin Detemir (Levemir) 100 Unit/1 Ml Vial, 22 UNIT SQ AD, VIAL 04/29/23 Sitagliptin Phos/Metformin HCl (Janumet Xr 50-1,000 mg Tablet) 1 Each Tbmp.24hr, 1 EACH PO BID, TAB.SR 04/29/23 Telmisartan (Telmisartan) 80 Mg Tablet, 80 MG PO DAILY, TAB 04/29/23 Gabapentin (Gabapentin) 100 Mg Capsule, 100 MG PO DAILY, CAP 04/29/23 Quetiapine Fumarate (Quetiapine Fumarate) 100 Mg Tablet, 100 MG PO HS, TAB 04/29/23 Clonidine HCl (Clonidine HCl) 0.1 Mg Tablet, 0.1 MG PO AD, TAB 04/29/23 Empagliflozin (Jardiance) 25 Mg Tablet, 25 MG PO DAILY, TAB 04/29/23 Gabapentin (Gabapentin) 100 Mg Capsule, 100 MG PO HS, CAP 04/29/23 Metoprolol Succinate (Metoprolol Succinate) 25 Mg Tab.er.24h, 25 MG PO DAILY, TAB 04/29/23 Past Medical History Past Medical History: Anxiety, Diabetes-Type II, Hypertension, Other Additional Past Medical Hx: INSOMNIA Surgical History: Other, Surgical History Other: LEFT ANKLE Family History: Negative Social History: Negative History: Not Applicable RN Note Reviewed/Agreed w/PFSH: Yes Review of System Dictation Constitutional: Negative for fever,, and weight loss positive for chills Eyes: Negative for injury, pain,redness, and discharge ENT: Negative for injury,pain or swelling Cardiovascular: Negative for chest pain, palpitations, and edema positive for low heart rate Respiratory: Negative for shortness of breath, cough, and wheezing, Abdomen/GI: Negative for , diarrhea, and constipation positive for abdominal pain, nausea, vomiting Back: Negative for injury and pain : Negative for injury, bleeding and discharge MS/Extremity: Negative for injury and deformity Skin: Negative for rash, and discoloration Neuro: Negative for headache, weakness, numbness, tingling, and seizure Psych: Negative for suicide ideation, homicidal ideation, and hallucinations Initial Vital Sign VS Vital Signs Date Time Temp Pulse Resp B/P (MAP) Pulse Ox O2 Delivery O2 Flow Rate FiO2 05/19/25 00:56 97.9 83 18 167/92 99 Room Air 05/19/25 01:07 0 21 Physical Exam Dictation Vital Signs reviewed General Appearance: Alert, oriented x 3, no acute distress, well developed, nourished. Head and Face: non-traumatic. Eyes: PERRL, pink conjunctivas, eyelid no trauma, anterior chamber with arcus senilis. Ears: Pinnas intact and no signs of trauma or erythema ear canals clear and no discharge TM no erythema Nose: No discharge, no bleeding. Oropharynx: Mouth normal, tongue pink. pharynx clear,no erythema, tonsils no exudates, no abscesses noted, mucous membrane moist Neck: Supple, non-tender, no thyromegaly, no masses, no JVD, no bruits Breast:Deferred Chest:No tenderness, no crepitus, no paradoxical movement, no retractions Lungs:Clear, well-ventilated, symmetric, no rales, no wheezing, no rhonchi, no stridor, good breath sounds bilaterally Heart: Regular rate, regular rhythm, no murmur, no gallops Vascular: no peripheral edema, Abdomen: Soft, positive bowel sounds, nondistended, no guarding, nontender, no rebound, no masses no hepatomegaly, no splenomegaly, no Tellez's sign, no hernias. Rectal: Deferred Genital: Deferred Neurological: Normal speech, motor function intact, sensory function intact Musculoskeletal: Neck nontender, full range of motion, back nontender, full range of motion, Extremities: nontender, full range of motion Skin: Color pink, dry, no turgor, no rash, no lacerations, no abrasions, no contusions. Lymphatic: Deferred Results (Laboratory/Radiology) Laboratory/Radiology Laboratory Tests Test 05/19/25 01:01 05/19/25 01:29 Urine Color LIGHT-YELLOW (YELLOW) Urine Appearance CLEAR (CLEAR) Urine pH 6.5 (5.0-8.0) Urine Specific [place] 1.029 (1.001-1.031) Urine Protein 10 mg/dL (NEGATIVE) H Urine Glucose (UA) >=1000 mg/dL (NEGATIVE) H Urine Ketones NEGATIVE mg/dL (NEGATIVE) Urine Occult Blood NEGATIVE (NEGATIVE) Urine Nitrate NEGATIVE (NEGATIVE) Urine Bilirubin NEGATIVE mg/dL (NEGATIVE) Urine Urobilinogen 0.2 mg/dL (0.2-1.0) Urine Leukocyte Esterase 25 Fredy/uL (NEGATIVE) H Urine RBC 2-5 /HPF (0-1) H Urine WBC 2-5 /HPF (0-1) H Urine Squamous Epithelial Cells RARE /HPF (0-2) Urine Bacteria None /HPF (None Seen) White Blood Count 6.4 K/uL (4.8-10.8) Red Blood Count 4.43 MIL/uL (4.00-5.50) Hemoglobin 13.0 g/dL (12.0-16.0) Hematocrit 38.0 % (36-48) Mean Corpuscular Volume 85.8 fL (79-99) Mean Corpuscular Hemoglobin 29.3 pg (27.0-33.0) Mean Corpuscular Hemoglobin Concent 34.2 g/dL (32.0-36.0) Red Cell Distribution Width 12.1 % (11.0-15.5) Platelet Count 244 K/uL (130-400) Mean Platelet Volume 11.0 fL (7.5-10.5) H Immature Granulocyte % (Auto) 0.2 % (0-1) Neutrophils (%) (Auto) 63.6 % (40.0-77.0) Lymphocytes (%) (Auto) 27.7 % (21.0-51.0) Monocytes (%) (Auto) 5.0 % (3.0-13.0) Eosinophils (%) (Auto) 2.7 % (0.0-8.0) Basophils (%) (Auto) 0.8 % (0.0-5.0) Neutrophils # (Auto) 4.1 K/uL (1.8-7.7) Lymphocytes # (Auto) 1.8 K/uL (1.0-4.8) Monocytes # (Auto) 0.3 K/uL (0.1-1.0) Eosinophils # (Auto) 0.17 K/uL (0.00-0.70) Basophils # (Auto) 0.05 K/uL (0.00-0.20) Absolute Immature Granulocyte (auto 0.01 K/uL (0-1) Nucleated Red Blood Cells 0.0 % (0.0-0.19) Sodium Level 138 mmol/L (136-145) Potassium Level 3.2 mmol/L (3.5-5.1) L Chloride Level 101 mmol/L (101-111) Carbon Dioxide Level 30 mmol/L (21-32) Blood Urea Nitrogen 20 mg/dL (7-18) H Creatinine 0.7 mg/dL (0.5-1.0) Glomerular Filtration Rate Calc 102 mL/min (>90) Random Glucose 214 mg/dL (70-105) H Total Calcium 8.7 mg/dL (8.5-10.1) Magnesium Level 1.80 mg/dL (1.80-2.40) Total Bilirubin 0.7 mg/dL (0.2-1.0) Aspartate Amino Transf (AST/SGOT) 32 U/L (10-37) Alanine Aminotransferase (ALT/SGPT) 37 U/L (12-78) Alkaline Phosphatase 113 U/L (50-136) Total Creatine Kinase 51 U/L (21-232) Troponin I High Sensitivity < 4 ng/L (4-50) L Total Protein 6.7 g/dL (6.0-8.3) Albumin 3.8 g/dL (3.5-5.0) Lipase 22 U/L (16-77) Labs Reviewed?: Yes EKG: (+) rhythm EKG Comment: Date:05/19/2025 Time:0113 Ventricular rate:67 CA interval:158 QRS duration:91 QT/QTc:403/427 EKG interpretation: Sinus rhythm Reviewed by ED Attending no STEMI ED Course ED Course Orders Procedure Category Date Status Time Cbc With Differential LAB 05/19/25 Complete 01:06 12 Lead Ekg Tracing- EKG 05/19/25 Complete Technical 01:06 0.9%Nacl 1000ml (Ns PHA 05/19/25 Complete 1000ml) 01:30 Magnesium LAB 05/19/25 Complete 01:06 Creatine Kinase, Total LAB 05/19/25 Complete 01:06 Troponin I High LAB 05/19/25 Complete Sensitivity 01:06 Comprehensive LAB 05/19/25 Complete Metabolic Panel 01:06 Lipase LAB 05/19/25 Complete 01:06 Ondansetron 4mg Inj PHA 05/19/25 Complete (Zofran 4mg Inj) 01:30 Urinalysis Profile LAB 05/19/25 Complete 01:06 Chest 1vw RAD 05/19/25 Logged 01:06 Potassium Bicarb/Cit PHA 05/19/25 Complete Ac 25meq (K-Lyte Ta 02:30 Current Medications Medications (Trade) Dose Ordered Sig/[place]ota Route PRN Reason Start Time Stop Time Status Last Admin Dose Admin Ondansetron HCl (zoFRAN 4MG INJ) 4 mg ONCE ONCE IVP 05/19/25 01:30 05/19/25 01:31 DC 05/19/25 01:46 Potassium Bicarbonate (K-Lyte Tablet Eff 25 Meq Tablet.eff) 25 meq ONCE ONCE PO 05/19/25 02:30 05/19/25 02:31 DC 05/19/25 02:21 Sodium Chloride 1,000 ml @ 0 mls/hr ONCE ONCE IV 05/19/25 01:30 05/19/25 01:31 DC 05/19/25 01:46 Vital Signs Date Time Temp Pulse Resp B/P (MAP) Pulse Ox O2 Delivery O2 Flow Rate FiO2 05/19/25 01:07 98.1 80 18 158/88 99 Room Air* 0 21 05/19/25 00:56 97.9 83 18 167/92 99 Room Air Medical Decision Making MDM The patient is a 55-year-old female with a history of hypertension, diabetes who presents to the emergency department with complaints of chills, nausea nonbloody vomiting, generalized abdominal pain onset 08 08. Patient reports that during episode she checked her blood pressure and reports her heart rate was low in the 60s and will became concerned. Reports she has been checking frequently because they changed her medications two months ago. Patient denies any chest pain or shortness of breath. Denies any diarrhea. Reports last bowel movement yesterday CBC showed no leukocytosis, no anemia, chemistry showed mild hypokalemia, negative troponin. On physical exam patient has a nontender abdomen. Patient in no acute distress, neurologically intact. Patient will be discharged to follow up with her PCP. Vital signs remained stable in the ER. No signs of bradycardia. Differential diagnosis: Gastroenteritis, ACS, electrolyte imbalance, dehydration Need for hospitalization: Patient does not meet criteria for hospitalization. There are no social concerns with this patient. DX & DISP Disposition: Discharge Departure Impression: Primary Impression: Gastroenteritis Additional Impression: Hypokalemia Condition: Stable Scripts Ondansetron (Ondansetron Odt) 4 Mg Tab.rapdis 4 MG PO Q6HPRN PRN for nausea, #16 TAB 0 Refills Prov: RICHARDSONRINA MASON TUCK POINTER 05/19/25 Additional Instructions: Your labs were unremarkable except your potassium was a little bit low which was replaced in ER. Please follow up with the primary doctor in 1-2 days. If anything worsens please return to ER. FOLLOW-UP WITH PRIMARY CARE PROVIDER IN 1 TO 2 DAYS. TAKE MEDICATIONS DIRECTED HERE IN THE EMERGENCY ROOM. OKAY TO CONTINUE HOME MEDICATIONS UNLESS OTHERWISE DISCUSSED DURING YOUR VISIT IN THE EMERGENCY ROOM TODAY. RETURN TO YOUR NEAREST EMERGENCY ROOM IF SYMPTOMS WORSEN OR IF THERE IS NO IMPROVEMENT. CALL 911 IF YOU NEED IMMEDIATE ASSISTANCE. TAKE TYLENOL [id number] NEEDED AND IF NO CONTRAINDICATIONS ARE PRESENT. INCREASE ORAL HYDRATION. A WOUND CULTURE OR URINE CULTURE WAS ORDERED HERE IN THE EMERGENCY ROOM DEPARTMENT PLEASE FOLLOW-UP WITH PRIMARY CARE PROVIDER AND ADVISE THEM TO GET REPEAT PORTS FROM OUR FACILITY. IF YOU HAD ANY RICKY WRAP/SPLINTS THAT WERE APPLIED HERE, PLEASE DO NOT REMOVE THEM UNTIL YOU SEE YOUR PRIMARY CARE OR SPECIALTY. Referrals: SELF,REFERRAL (PCP) Time of Disposition: 02:48 I have reviewed the case, and I agree with, Diagnosis and Plan RINA RICHARDSON TUCK POINTER May 19, 2025 01:25
[2025-05-19 01:38] LABS: IMMATURE GRANULOCYTE ABSOLUTE 0.01 K/uL (0-1); NUCLEATED RED BLOOD CELLS 0.0 % (0.0-0.19); PLATELET COUNT (AUTO) 244 K/uL (130-400); RED BLOOD CELL COUNT(AUTO) 4.43 MIL/uL (4.00-5.50); RED CELL DISTRIBUTION WIDTH 12.1 % (11.0-15.5); WHITE BLOOD COUNT (AUTO) 6.4 K/uL (4.8-10.8)
[2025-05-19 01:45] LABS: APPEARANCE,URINE CLEAR (CLEAR); GLUCOSE, URINE (UA) >=1000 mg/dL (NEGATIVE); LEUKOCYTE ESTERASE ,URINE 25 Leu/uL (NEGATIVE); NITRATE,URINE NEGATIVE (NEGATIVE); OCCULT BLOOD,URINE NEGATIVE (NEGATIVE)
[2025-05-19 01:46] LABS: ADD UA MICROSCOPIC YES
[2025-05-19] MEDS: 0.9%NACL 1000ML 1,000 ML IV ONE (01:46)
[2025-05-19 01:47] LABS: SQUAMOUS EPITHELIAL CELL,UR RARE /HPF (0-2)
[2025-05-19 02:00] LABS: CREATININE 0.7 mg/dL (0.5-1.0); GLOMERULAR FILTR. RATE CALC 102.0 mL/min (>90); GLUCOSE,RANDOM 214.0 mg/dL (70-105); SODIUM SERUM 138.0 mmol/L (136-145); UREA NITROGEN, BLOOD 20.0 mg/dL (7-18)
[2025-05-19 02:04] LABS: ASPARTATE AMINOTRANSFERASE 32.0 U/L (10-37); CREATINE KINASE, TOTAL 51.0 U/L (21-232); TOTAL PROTEIN, SERUM 6.7 g/dL (6.0-8.3)
[2025-05-19] MEDS ORDERED: ONDA-243 PO (02:50)
[2025-05-19 03:07] VITALS: BP 140/75; PULSE 75; RESP 18; TEMP 97.8; O2SAT 99
--- NOTE | 2025-05-19 03:42 | HMCIMG ---
EXAM: CR Chest, 1 view CLINICAL HISTORY: Shortness of breath. COMPARISON: Chest radiograph dated 02/13/2025. FINDINGS: The lungs show no infiltrates or other acute findings. No pleural effusion or pneumothorax. The cardiomediastinal silhouette is within normal limits. No acute osseous abnormality. IMPRESSION: No acute cardiopulmonary process is evident. No interval changes. /[place]
== END 2025-05-19 03:10 | disposition home or self-care (01) ==
LOC: EDH 00:55
DX: K52.9 Noninfective gastroenteritis and colitis, unspecified (principal); E87.6 Hypokalemia; F41.9 Anxiety disorder, unspecified; E11.9 Type 2 diabetes mellitus without complications; I10 Essential (primary) hypertension; Z79.52 Long term (current) use of systemic steroids; Z79.84 Long term (current) use of oral hypoglycemic drugs; Z79.899 Other long term (current) drug therapy
CPT/HCPCS: 99284; 96374; 71045; 96361; 82550; 83735; 84484; 80053; 83690; 85025; 81001; 36415; 93005; J7030; J2405

== ENCOUNTER 2025-09-03 16:45 | Emergency (ER) | payer BC ==
[~2025-09-03] VITALS: Ht 157.5 cm; Wt 60.3 kg
[~2025-09-03 16:45] MED LIST changes: +ONDA-243 PO
--- NOTE | 2025-09-03 16:52 | NUR ---
BG [phone] IN TRIAGE
--- NOTE | 2025-09-03 17:19 | ERN ---
General Chief Complaint: Hyperglycemia Stated Complaint: ELEVATED BG Time Seen by MD: 19:12 Source: patient History of Present Illness Initial Comments My patient, 55-year-old female, with past medical history of type 2 diabetes, presented to the emergency with high blood glucose on her home readings. She was found to have 521 blood glucose on presentation. She complains of g eneralized weakness. She is alert, oriented without tachypnea. Timing/Duration: 4-6 hours Associated Symptoms: weakness Allergies: Coded Allergies: No Known Drug Allergies (Unverified Allergy, Unknown, 01/27/17) Home Meds Active Scripts Ondansetron (Ondansetron Odt) 4 Mg Tab.rapdis, 4 MG PO Q6HPRN PRN for nausea, #16 TAB 0 Refills Prov:RINA RICHARDSON [facility] 05/19/25 Fluticasone Propionate (Flonase Nasal Gay) 50 Mcg/Actuation Gay, 2 SPRAY NS DAILY, #16 GM 0 Refills Prov:CARLOZ ENCISO MD 08/31/24 Amoxicillin/Potassium Clav (Amox Tr-K Clv 875-125 mg Tab) 875 Mg-125 Mg Tablet, 1 TAB PO BID for 10 Days, #20 TAB 0 Refills Prov:CARLOZ ENCISO MD 08/31/24 Hydroxyzine HCl (Atarax) 25 Mg Tab, 25 MG PO TIDMEALS PRN for ITCHING, #30 TAB Prov:TYLOR VELAZCO [facility] 07/29/23 Prednisone (Prednisone) 20 Mg Tablet, 2 TAB PO DAILY for 5 Days, #10 TAB 0 Refills Prov:TYLOR VELAZCO [facility] 07/29/23 Clotrimazole/Betamethasone Dip (Clotrimazole-Betamethasone Crm) 1 %-0.05 % Cream..g., 0.5 GM TP BID, #15 GM Apply to the affected area of the skin twice a day x7 days. Prov:TYLOR VELAZCO [facility] 07/29/23 Cefdinir (Cefdinir) 300 Mg Capsule, 300 MG PO BID, #14 CAP 0 Refills Prov:JOCE NAQVI [facility] 05/02/23 Reported Medications Insulin Detemir (Levemir) 100 Unit/1 Ml Vial, 22 UNIT SQ AD, VIAL 04/29/23 Sitagliptin Phos/Metformin HCl (Janumet Xr 50-1,000 mg Tablet) 1 Each Tbmp.24hr, 1 EACH PO BID, TAB.SR 04/29/23 Telmisartan (Telmisartan) 80 Mg Tablet, 80 MG PO DAILY, TAB 04/29/23 Gabapentin (Gabapentin) 100 Mg Capsule, 100 MG PO DAILY, CAP 04/29/23 Quetiapine Fumarate (Quetiapine Fumarate) 100 Mg Tablet, 100 MG PO HS, TAB 04/29/23 Clonidine HCl (Clonidine HCl) 0.1 Mg Tablet, 0.1 MG PO AD, TAB 04/29/23 Empagliflozin (Jardiance) 25 Mg Tablet, 25 MG PO DAILY, TAB 04/29/23 Gabapentin (Gabapentin) 100 Mg Capsule, 100 MG PO HS, CAP 04/29/23 Metoprolol Succinate (Metoprolol Succinate) 25 Mg Tab.er.24h, 25 MG PO DAILY, TAB 04/29/23 Past Medical History Past Medical History: Anxiety, Diabetes-Type II, High Cholesterol, Hypertension, Other Medical History Other: INSOMNIA Past Surgical History: Other, Surgical History Other: LEFT ANKLE Family History Family History: Negative Social History Social History: Negative Female( History) History: Not Applicable Constitutional: (+) weakness; (-) chills, (-) diaphoresis, (-) fever, (-) malaise, (-) other documentation EENTM: (-) eye pain, (-) blurred vision, (-) tearing, (-) double vision, (-) ear pain, (-) ear discharge, (-) nose pain, (-) nose congestion, (-) throat pain, (-) Throat swelling, (-) mouth pain, (-) tooth pain, (-) mouth swelling, (-) other documentation Respiratory: (-) cough, (-) orthopnea, (-) short of breath, (-) stridor, (-) wheezing, (-) other documentation Cardiovascular: (-) chest pain, (-) edema, (-) palpitations, (-) syncope, (-) dyspnea on exertion, (-) other documentation Gastrointestinal/Abdominal: (-) nausea, (-) vomiting, (-) diarrhea, (-) abdo mesha pain, (-) abdominal distention, (-) constipation, (-) rectal bleeding, (-) dark stool/melena, (-) other documentation Musculoskeletal: (-) Neck pain, (-) back pain, (-) Flank Pain, (-) joint pain, (-) joint swelling, (-) muscle pain, (-) muscle stiffness, (-) gout, (-) other documentation Skin: (-) laceration, (-) contusion, (-) abrasion, (-) abscess, (-) rash, (-) change in color, (-) change in hair, (-) change in nails, (-) diaphoresis, (-) dryness, (-) other documentation Neuro: (+) weakness Psych: (-) depression, (-) suicidal ideation, (-) anxiety, (-) emotional problems, (-) auditory hallucinations, (-) visual hallucinations Hematologic/Lymphatic: (-) anemia, (-) blood clots, (-) easy bleeding, (-) easy bruising, (-) swollen glands, (-) other documentation Physical Exam General Appearance: (+) mild distress Orientation: (+) alert, (+) oriented x 3 Head/Face Trauma: No Eye: bilateral eye normal inspection Ear, Nose, Throat: (+) hearing grossly normal, (+) normal ENT inspection, (+) moist mucous membraine Neck: (+) normal inspection, (+) supple, (+) full range of motion Respiratory: (+) chest non-tender, (+) lungs clear, (+) well ventilated Heart: (+) regular, (+) no gallop Vascular: (+) no edema Gastrointestinal: (+) soft, (+) non-tender, (+) no organomegaly Extremities: (+) normal range of motion, (+) non-tender, (+) normal inspection Neurologic/Psychiatric: (+) normal speech, (+) no motor defecits, (+) no sensory deficits, (+) normal gait Skin: (+) normal color Results Laboratory and Microbiology Lab and Micro Result Laboratory Tests Test 09/03/25 16:54 09/03/25 17:40 09/03/25 17:42 09/03/25 18:57 Whole Blood Glucose 521 MG/DL (70-110) *H 465 MG/DL (70-110) *H White Blood Count 11.3 K/uL (4.8-10.8) H Red Blood Count 4.70 MIL/uL (4.00-5.50) Hemoglobin 13.5 g/dL (12.0-16.0) Hematocrit 39.1 % (36-48) Mean Corpuscular Volume 83.2 fL (79-99) Mean Corpuscular Hemoglobin 28.7 pg (27.0-33.0) Mean Corpuscular Hemoglobin Concent 34.5 g/dL (32.0-36.0) Red Cell Distribution Width 12.2 % (11.0-15.5) Platelet Count 309 K/uL (130-400) Mean Platelet Volume 11.2 fL (7.5-10.5) H Nucleated Red Blood Cells 0.0 % (0.0-0.19) Sodium Level 124 mmol/L (136-145) L Potassium Level 3.9 mmol/L (3.5-5.1) Chloride Level 86 mmol/L (101-111) *L Carbon Dioxide Level 31 mmol/L (21-32) Blood Urea Nitrogen 20 mg/dL (7-18) H Creatinine 1.1 mg/dL (0.5-1.0) H Glomerular Filtration Rate Calc 59 mL/min (>90) Random Glucose 537 mg/dL (70-105) *H Total Calcium 9.4 mg/dL (8.5-10.1) Urine Color YELLOW (YELLOW) Urine Appearance CLEAR (CLEAR) Urine pH 5.5 (5.0-8.0) Urine Specific [place] 1.031 (1.001-1.031) Urine Protein NEGATIVE mg/dL (NEGATIVE) Urine Glucose (UA) >=1000 mg/dL (NEGATIVE) H Urine Ketones 15 mg/dL (NEGATIVE) H Urine Occult Blood NEGATIVE (NEGATIVE) Urine Nitrate NEGATIVE (NEGATIVE) Urine Bilirubin NEGATIVE mg/dL (NEGATIVE) Urine Urobilinogen 0.2 mg/dL (0.2-1.0) Urine Leukocyte Esterase NEGATIVE Fredy/uL Urine RBC 0-1 /HPF (0-1) Urine WBC 0-1 /HPF (0-1) Urine Squamous Epithelial Cells None Seen /HPF (0-2) Urine Bacteria Rare /HPF (None Seen) Bedside Glucose Comment Notified Nurse Test 09/03/25 20:10 09/03/25 20:13 09/03/25 21:39 09/03/25 23:24 Whole Blood Glucose 344 MG/DL (70-110) H 351 MG/DL (70-110) H 283 MG/DL (70-110) H Sodium Level 127 mmol/L (136-145) L Potassium Level 3.2 mmol/L (3.5-5.1) L Chloride Level 91 mmol/L (101-111) L Carbon Dioxide Level 27 mmol/L (21-32) Blood Urea Nitrogen 18 mg/dL (7-18) Creatinine 1.0 mg/dL (0.5-1.0) Glomerular Filtration Rate Calc 67 mL/min (>90) Random Glucose 372 mg/dL (70-105) H Total Calcium 8.6 mg/dL (8.5-10.1) Test 09/03/25 23:41 Urine Color COLORLESS (YELLOW) Urine Appearance CLEAR (CLEAR) Urine pH 6.0 (5.0-8.0) Urine Specific [place] 1.008 (1.001-1.031) Urine Protein NEGATIVE mg/dL (NEGATIVE) Urine Glucose (UA) >=1000 mg/dL (NEGATIVE) H Urine Ketones 5 mg/dL (NEGATIVE) H Urine Occult Blood NEGATIVE (NEGATIVE) Urine Nitrate NEGATIVE (NEGATIVE) Urine Bilirubin NEGATIVE mg/dL (NEGATIVE) Urine Urobilinogen 0.2 mg/dL (0.2-1.0) Urine Leukocyte Esterase NEGATIVE Fredy/uL Urine RBC 0-1 /HPF (0-1) Urine WBC 2-5 /HPF (0-1) H Urine Squamous Epithelial Cells 2-5 /HPF (0-2) Urine Transitional Epithelial Cells Rare /HPF (None Seen) Urine Bacteria Rare /HPF (None Seen) [facility] Assumed care at 7:00 p.m. This is a 55-year-old female who has a known diabetic apparently checks her sugars everyday and they have been on the higher side for the past few days. To its sugar was extremely high she also checked her blood pressure which was high and she did not feel well so she came into the ER for further evaluation she denied any nausea vomitings diarrhea hematemesis or melena no fever chills or rigors. She admits to compliance with her insulin and hypoglycemic regimen. Temperature 98.6 pulse 91 respirations 18 blood pressure 121/80 with a pulse oximetry of 100% on room air Patient has chronic medical problems include diabetes mellitus, hypertension, hypercholesterolemia, chronic insomnia. General: awake, alert, NAD Head/Face: Normocephalic, atraumatic Eyes: PERRL, EOMI, vision at baseline ENT: oral cavity clear, TMs clear, no signs of infection Neck: Trachea midline, supple, no nuchal rigidity Cardiovascular: RRR, normal S1/S2, No MRGs, no JVD Respiratory: CTAB, no respiratory distress, No rales or wheezes Abdomen: Soft, non-tender, non-distended, normal bowel sounds, no guarding or rebound. Skin: Warm, dry, normal turgor, no rash MS/Extremity: Pulses equal, no cyanosis, neurovascular intact, FROM Neuro: COAx4, GCS 15, strength 5/5, CN 2-12 intact, normal cerebellar exam, normal gait, Psych: Normal behavior, mood, and affect normal Extremities-trace edema without any palpable cords, Homans sign is negative Labs reviewed initial Accu-Chek was 527. CBC showed a white count of 11.3 BNP 7 is significant for a sodium of 124 chloride 86 BUN and creatinine of 20 and 1.1 with a glucose of 521. Patient was started on normal saline and received 5 units of insulin IV. The remaining labs included urinalysis which is unremarkable for any UTI 7:00 p.m. repeat Accu-Chek 465. Change the fluids to wide open 8:10 p.m. repeat Accu-Chek 344 9:30 p.m. repeat BNP 7 showed a sodium of 127 potassium of 3.2 chloride 91 bicarb 27 BUN and creatinine are 18 and 1.0 with a glucose of 372 I had a long discussion with the patient and updated her on all the labs and improvement since her presentation and recommended observation and management in the hospital for electrolyte correction and hyperglycemia management. Patient stated that her sister is visiting and she refused admission but is willing to stay in the ER for a few more hours. I have recommended additional fluids and also a small additional dose of insulin and symptomatic management. She had an episode of emesis but otherwise overall improved significantly with the sugars in the high 200s. Discharge the patient to follow up with her primary care physician. Rationale: Tests considered and ordered secondary to shared decision making include: Blood work, Accu-Cheks, urinalysis Previous outside records reviewed: Old ER visits. Risk of complication and/or morbidity or mortality of patient management: None Medications-Per medication reconciliation Need for hospitalization: Patient does not meet criteria for hospitalization. Need for emergency major/minor surgery: No There are no social concerns with this patient. Prescription drug management Prescriptions will include symptomatic care Patient's prior external medical records from other ER visits were reviewed by me as indicated. Prior testing and results from previous visits were reviewed. Prior tests were taken into account with medical decision making and resource utilization, independent historian/historians were used to obtain complete medical history. I independently interpreted the test that were performed, results were reviewed by me and considered findings on radiology if ordered. Medical management and examination interpretation discussions were had by me with other qualified healthcare professionals as indicated for the patient's care. ED Course Orders Procedure Category Date Status Time Cbc Without LAB 09/03/25 Complete Differential 17:02 Basic Metabolic Panel LAB 09/03/25 Complete 17:02 Urinalysis Profile LAB 09/03/25 Complete 17:02 0.9%Nacl 1000ml (Ns PHA 09/03/25 In Process 1000ml) 17:30 Insulin Regular, PHA 09/03/25 Complete Human 3ml (Humulin R 18:45 Basic Metabolic Panel LAB 09/03/25 Complete 20:00 Urinalysis Profile LAB 09/03/25 Complete 20:28 Potassium Bicarb/Cit PHA 09/03/25 Complete Ac 25meq (K-Lyte Ta 21:30 0.9% Nacl 500ml PHA 09/03/25 Complete Iv.Soln (Ns 500ml 21:30 Insulin Regular, PHA 09/03/25 Complete Human 3ml (Humulin R 21:30 Ondansetron 4mg Inj PHA 09/04/25 Complete (Zofran 4mg Inj) 00:00 Ondansetron 4mg Inj PHA 09/04/25 Complete (Zofran 4mg Inj) 00:05 Current Medications Medications (Trade) Dose Ordered Sig/Carlota Route PRN Reason Start Time Stop Time Status Last Admin Dose Admin Insulin Human Regular (humuLIN R 100 UNIT/ML 3ML) 3 unit ONCE ONCE IV 09/03/25 21:30 09/03/25 21:46 DC 09/03/25 21:52 Insulin Human Regular (humuLIN R 100 UNIT/ML 3ML) 10 unit ONCE ONCE IV 09/03/25 18:45 09/03/25 18:46 DC 09/03/25 19:08 Ondansetron HCl (zoFRAN 4MG INJ) 4 mg ONCE ONCE IVP 09/04/25 00:00 09/04/25 00:10 DC 09/04/25 00:11 Ondansetron HCl (zoFRAN 4MG INJ) 4 mg STK-MED ONCE .ROUTE 09/04/25 00:05 09/04/25 00:05 DC Potassium Bicarbonate (K-Lyte Tablet Eff 25 Meq Tablet.eff) 50 meq ONCE ONCE PO 09/03/25 21:30 09/03/25 21:46 DC 09/03/25 22:02 Sodium Chloride 500 ml @ 0 mls/hr ONCE ONCE IV 09/03/25 21:30 09/03/25 21:46 DC 09/03/25 21:49 Sodium Chloride 1,000 ml @ 75 mls/hr [id number] IV 09/03/25 17:30 10/03/25 17:29 09/03/25 18:32 Vital Signs Date Time Temp Pulse Resp B/P (MAP) Pulse Ox O2 Delivery O2 Flow Rate FiO2 09/03/25 21:01 98.2 82 18 132/71 98 Room Air* 0 09/03/25 19:56 98.1 87 18 127/70 96 Room Air* 0 09/03/25 18:23 98.2 86 12 123/69 98 Room Air* 0 21 09/03/25 16:47 98.6 91 18 121/80 100 Problem List Problem Lists: (1) Uncontrolled diabetes mellitus with hyperglycemia, with long-term current use of insulin (2) Hypokalemia (3) Hyponatremia (4) Dehydration (5) Uncontrolled hypertension (6) Anxiety disorder DX & DISP Disposition: Discharge Departure Impression: Primary Impression: Uncontrolled diabetes mellitus with hyperglycemia, with long-term current use of insulin Additional Impressions: Hyponatremia, Hypokalemia, Dehydration, Uncontrolled hypertension, Anxiety disorder Condition: Stable Additional Instructions: Patient and the caregiver have been informed of all the diagnostic tests and the imaging conducted during the today's visit to the emergency room and has verbalized understanding of the results I have personally reviewed and interpreted all diagnostic exams performed here in the ER today as well as the vital signs documented by the nursing staff. The patient is now being discharged to home and should follow up with the primary care physician or the specialist as directed by the ER staff. Follow-up with primary care provider in 1 to 2 days. Take medications as directed here in the emergency room. Okay to continue home medications unless otherwise discussed during your visit in the emergency room today. Return to your nearest emergency room if symptoms worsen or if there is no improvement. Call 911 if you need immediate assistance. Take Tylenol or Motrin [id number] as needed and if no contraindications are present. Increase oral hydration. A wound culture or urine culture was ordered here in the emergency room department please follow-up with primary care provider and advise them to get repeat ports from our facility. If you had any Gerard wrap/splints that were applied here, please do not remove them until you see your primary care or specialty. Long discussion with the patient and counseled her on optimal ADA diet, checking her sugar at least twice a day if not 4 times over the next 1 week and discuss with her primary care physician the dose adjustment of the insulin. And I also recommended sleep hygiene. Referrals: SELF,REFERRAL (PCP) ROMINA ANN MD Sep 03, 2025 17:19 ANTONIO CASTREJON MD Sep 04, 2025 01:26
[2025-09-03 18:00] LABS: NUCLEATED RED BLOOD CELLS 0.0 % (0.0-0.19); PLATELET COUNT (AUTO) 309.0 K/uL (130-400); RED BLOOD CELL COUNT(AUTO) 4.7 MIL/uL (4.00-5.50); RED CELL DISTRIBUTION WIDTH 12.2 % (11.0-15.5); WHITE BLOOD COUNT (AUTO) 11.3 K/uL (4.8-10.8)
[2025-09-03 18:04] LABS: APPEARANCE,URINE CLEAR (CLEAR); GLUCOSE, URINE (UA) >=1000 mg/dL (NEGATIVE); LEUKOCYTE ESTERASE ,URINE NEGATIVE Leu/uL (NEGATIVE); NITRATE,URINE NEGATIVE (NEGATIVE); OCCULT BLOOD,URINE NEGATIVE (NEGATIVE)
[2025-09-03 18:05] LABS: ADD UA MICROSCOPIC YES
[2025-09-03 18:18] LABS: CREATININE 1.1 mg/dL (0.5-1.0); GLOMERULAR FILTR. RATE CALC 59.0 mL/min (>90); SODIUM SERUM 124.0 mmol/L (136-145); UREA NITROGEN, BLOOD 20.0 mg/dL (7-18)
[2025-09-03 18:32] LABS: GLUCOSE,RANDOM 537.0 mg/dL (70-105)
[2025-09-03] MEDS: 0.9%NACL 1000ML 1,000 ML IV SCH (18:32)
[2025-09-03 18:46] LABS: SQUAMOUS EPITHELIAL CELL,UR None Seen /HPF (0-2)
[2025-09-03 20:33] LABS: CREATININE 1.0 mg/dL (0.5-1.0); GLOMERULAR FILTR. RATE CALC 67.0 mL/min (>90); GLUCOSE,RANDOM 372.0 mg/dL (70-105); SODIUM SERUM 127.0 mmol/L (136-145); UREA NITROGEN, BLOOD 18.0 mg/dL (7-18)
[2025-09-03] MEDS: 0.9% NACL 500ML IV.SOLN 500 ML IV ONE (21:49)
[2025-09-04 00:05] LABS: APPEARANCE,URINE CLEAR (CLEAR); GLUCOSE, URINE (UA) >=1000 mg/dL (NEGATIVE); LEUKOCYTE ESTERASE ,URINE NEGATIVE Leu/uL (NEGATIVE); NITRATE,URINE NEGATIVE (NEGATIVE); OCCULT BLOOD,URINE NEGATIVE (NEGATIVE)
[2025-09-04 00:06] LABS: ADD UA MICROSCOPIC YES
[2025-09-04 01:27] VITALS: BP 127/67; PULSE 86; RESP 18; TEMP 98.1; O2SAT 100
== END 2025-09-04 01:36 | disposition home or self-care (01) ==
LOC: EDH 16:45
DX: E11.65 Type 2 diabetes mellitus with hyperglycemia (principal); E87.1 Hypo-osmolality and hyponatremia; E87.6 Hypokalemia; E86.0 Dehydration; I10 Essential (primary) hypertension; F41.9 Anxiety disorder, unspecified; E78.00 Pure hypercholesterolemia, unspecified; Z79.4 Long term (current) use of insulin; Z79.52 Long term (current) use of systemic steroids; Z79.84 Long term (current) use of oral hypoglycemic drugs; Z79.899 Other long term (current) drug therapy
CPT/HCPCS: 99284; 96361; 96374; 80048 ×2; 85027; 82948 ×5; 81001 ×2; 36415; 96376; 96375; J1815 ×2; J7040; J7030; J2405